=== PATIENT | male | born 1975 | race Two or more races ===

== ENCOUNTER 2019-04-18 05:17 | Emergency (ER) | payer OTHER ==
[~2019-04-18] VITALS: Ht 175.3 cm; Wt 81.6 kg
--- NOTE | 2019-04-18 05:31 | NUR ---
ANABELLA FROM [facility] FOR MEDICAL CLEARANCE TO BE BOOKED. TO ER BED 1. AAOX4. NO RESP DISTRESS NOTED. AMBULATORY. C/O HTN AND HIGH BS. PT REPORTS HE HASNT BEEM TAKING HIS MEDS. BP NOTED AT 194/107 AND BS 318. AWAITING MD FOR EVAL.
[2019-04-18 06:09] LABS: BASOPHILS # (AUTO) 0.1 /CMM (0.0-0.2); EOSINOPHILS % (AUTO) 0.1 % (0.0-6.0); HEMATOCRIT 52 % (39-51); HEMOGLOBIN 17.9 g/dL (13.5-17.5); LYMPHOCYTES # (AUTO) 0.3 /CMM (0.8-4.8); LYMPHOCYTES % (AUTO) 3.9 % (20.0-44.0); MEAN CORPUSCULAR HGB CONC 34 g/dl (31.0-36.0); MEAN CORPUSCULAR VOLUME 91 fL (80-96); MONOCYTES # (AUTO) 0.8 /CMM (0.1-1.30); MONOCYTES % (AUTO) 9.9 % (2.0-12.0); NEUTROPHILS # (AUTO) 6.7 /CMM (1.8-8.9); NEUTROPHILS % (AUTO) 85.1 % (43.0-81.0); PLATELET COUNT (AUTO) 181 /CMM (150-450); RED BLOOD CELL COUNT(AUTO) 5.76 MIL/uL (4.5-6.0); WHITE BLOOD COUNT (AUTO) 7.9 K/uL (4.3-11.0)
[2019-04-18 06:11] LABS: CALCIUM, SERUM 9.9 mg/dL (8.5-10.1); CREATININE 1.1 mg/dL (0.6-1.3); POTASSIUM 3.4 mmol/L (3.5-5.1)
[2019-04-18 06:17] LABS: ALBUMIN 3.9 g/dL (3.4-5.0); BILIRUBIN,DIRECT 0.7 mg/dL (0.0-0.2); BILIRUBIN,TOTAL 1.9 mg/dL (0.2-1.0); TOTAL PROTEIN, SERUM 8.6 g/dL (6.4-8.2)
[2019-04-18] MEDS ORDERED: hydrALAZINE HCL IV 20 MG VIAL ONE (06:25)
[2019-04-18] MEDS ORDERED: hydrALAZINE HCL IV 20 MG VIAL IV ONE (06:30)
[2019-04-18] MEDS ORDERED: IV NS 0.9% 1,000 ML IV ONE (06:30)
[2019-04-18 07:14] LABS: APPEARANCE,URINE SL CLOUDY (CLEAR); BILIRUBIN,URINE SMALL (NEGATIVE); BLOOD, URINE MODERATE Ery/uL (NEGATIVE); COLOR,URINE YELLOW (YELLOW); KETONES,URINE 40 (NEGATIVE); LEUKOCYTE ESTERASE ,URINE NEGATIVE (NEGATIVE); NITRITE, URINE NEGATIVE (NEGATIVE); PH,URINE 7.5 (5.0-8.0); PROTEIN,URINE >=300 mg/dl (NEGATIVE); UGLUCOSE >=1000 mg/dL (NEGATIVE)
[2019-04-18 07:16] LABS: BACTERIA,URINE Rare /HPF (None Seen); SQUAMOUS EPITHELIAL CELL,UR Few /HPF (None Seen); WBC,URINE 0-2 /HPF (0-3)
[2019-04-18 07:17] LABS: SPERM,URINE Few /HPF (None Seen)
--- NOTE | 2019-04-18 07:17 | NUR ---
received report form sales stock associate RN. patient in bed, awake, informed MD for current BP and made aware. Will continue to monitor accordingly.
[2019-04-18] MEDS ORDERED: METFORMIN 500 MG TABLET PO ONE (07:30)
[2019-04-18] MEDS ORDERED: LOSARTAN POTASSIUM 25 MG TABLET PO ONE (07:30)
[2019-04-18] MEDS ORDERED: METFORMIN XR 500 MG TAB.SR.24H PO ONE (07:31)
[2019-04-18] MEDS ORDERED: LOSARTAN POTASSIUM 25 MG TABLET ONE (07:31)
[2019-04-18] MEDS ORDERED: ACETAMINOPHEN 325 MG TABLET ONE (07:57)
[2019-04-18] MEDS ORDERED: ACETAMINOPHEN 650 MG/20.3 ML UDC PO ONE (08:00)
[2019-04-18 08:07] VITALS: BP 183/92
--- NOTE | 2019-04-18 08:08 | NUR ---
patient left in stable condition accompanied by [employer] medically cleared okay to book.
[2019-04-18 08:28] LABS: LYMPHOCYTES % (MANUAL) 3 % (16-48); MONOCYTES % (MANUAL) 7 % (0-11.0); NEUTROPHILS % (MANUAL) 90 (42-76)
== END 2019-04-18 08:08 ==
LOC: ER 05:22
DX: I10 Essential (primary) hypertension (principal); E11.9 Type 2 diabetes mellitus without complications
CPT/HCPCS: 36415; 80048; 80076; 81001; 82010; 82962; 83690; 84484; 85025; 93005; 96374; 99284; J0360; J7030; 81000-TC

== ENCOUNTER 2019-04-19 16:05 | Emergency (ER) | payer OTHER ==
[~2019-04-19] VITALS: Ht 175.3 cm; Wt 86.2 kg
--- NOTE | 2019-04-19 16:15 | NUR ---
[employer] from residential, medical clearance. pt c/o facial, lip swelling s/p meds at noon time. denies difficulty breathing. Patient a/ox4, breathing even and unlabored, no sob noted, needs attended. Will continue to monitor.
[2019-04-19 16:29] LABS: BASOPHILS % (AUTO) 0.2 % (0.0-2.0); EOSINOPHILS % (AUTO) 0.1 % (0.0-6.0); HEMATOCRIT 50 % (39-51); HEMOGLOBIN 17.4 g/dL (13.5-17.5); LYMPHOCYTES # (AUTO) 0.2 /CMM (0.8-4.8); MEAN CORPUSCULAR HGB CONC 35 g/dl (31.0-36.0); MEAN CORPUSCULAR VOLUME 90 fL (80-96); MONOCYTES # (AUTO) 0.2 /CMM (0.1-1.30); MONOCYTES % (AUTO) 3.5 % (2.0-12.0); NEUTROPHILS % (AUTO) 93.2 % (43.0-81.0); PLATELET COUNT (AUTO) 184 /CMM (150-450); RED BLOOD CELL COUNT(AUTO) 5.51 MIL/uL (4.5-6.0); WHITE BLOOD COUNT (AUTO) 5.3 K/uL (4.3-11.0)
[2019-04-19 16:36] LABS: CALCIUM, SERUM 9.8 mg/dL (8.5-10.1); CREATININE 1.1 mg/dL (0.6-1.3); POTASSIUM 4.3 mmol/L (3.5-5.1)
[2019-04-19] MEDS ORDERED: IV NS 0.9% 1,000 ML BAG IV ONE (17:00)
[2019-04-19 17:29] VITALS: BP 144/86
--- NOTE | 2019-04-19 17:29 | NUR ---
IV removed. Catheter intact and site benign. Pressure and 4x4 applied to site. No bleeding noted.Patient discharged to home in stable condition. Written and verbal after care instructions given to [employer] and verbalizes understanding of instruction.
== END 2019-04-19 17:30 ==
LOC: ER 16:08
DX: S00.83XA Contusion of other part of head, initial encounter (principal); T78.40XA Allergy, unspecified, initial encounter; E86.0 Dehydration; I10 Essential (primary) hypertension; E11.9 Type 2 diabetes mellitus without complications; X58.XXXA Exposure to other specified factors, initial encounter; Y93.89 Activity, other specified; Y92.89 Other specified places as the place of occurrence of the external cause; Y99.8 Other external cause status
CPT/HCPCS: 36415; 70450; 70486; 71045; 80048; 85025; 96360; 99284; J7030